=== PATIENT | male | born 1955 | race Hispanic/Latino ===

== ENCOUNTER → 2022-06-21 | Outpatient (CLI) | payer OTHER | END | disposition home or self-care (01) | LOC: WHH 10:49 | PROVIDERS: ATTEND Family Medicine | DX: L89.224 Pressure ulcer of left hip, stage 4 (principal); L89.210 Pressure ulcer of right hip, unstageable; L89.154 Pressure ulcer of sacral region, stage 4; G82.53 Quadriplegia, C5-C7 complete; M79.7 Fibromyalgia; E46 Unspecified protein-calorie malnutrition; Z68.23 Body mass index [BMI] 23.0-23.9, adult; Z87.891 Personal history of nicotine dependence | CPT/HCPCS: 87070 ×2; 87077 ×4; 87186 ×4; G0463; A6248 ==

== ENCOUNTER 2022-11-02 18:01 | Inpatient (IN) | payer OTHER ==
[~2022-11-02] VITALS: Ht 177.8 cm; Wt 64.4 kg
[2022-11-02] MEDS ORDERED: CEFEPIME HCL 2 GM VIAL IVP STA (18:07)
[2022-11-02] MEDS ORDERED: 0.9%NACL 1000ML 2,500 ML IV ONE (18:30)
[2022-11-02] MEDS ORDERED: VANCOMYCIN 1G VIAL IVPB ONE (18:30)
[2022-11-02 18:31] LABS: BASOPHILS % (AUTO) 0.2 % (0.0-5.0); EOSINOPHILS % (AUTO) 0.4 % (0.0-8.0); HEMATOCRIT 37.3 % (42-54); LYMPHOCYTES % (AUTO) 8.6 % (21.0-51.0); MEAN CORPUSCULAR HEMOGLOBIN 26.8 pg (27.0-33.0); MEAN CORPUSCULAR HGB CONC 32.7 g/dL (32.0-36.0); MEAN CORPUSCULAR VOLUME 81.8 fL (79-99); MONOCYTES % (AUTO) 9.2 % (3.0-13.0); NEUTROPHILS % (AUTO) 81.2 % (40.0-77.0); PLATELET COUNT (AUTO) 357 K/uL (130-400); RED BLOOD CELL COUNT(AUTO) 4.56 MIL/uL (4.50-6.20); RED CELL DISTRIBUTION WIDTH 15.7 % (11.0-15.5); WHITE BLOOD COUNT (AUTO) 16.2 K/uL (4.8-10.8)
[2022-11-02 18:32] LABS: APPEARANCE,URINE TURBID (CLEAR); BILIRUBIN,URINE NEGATIVE (NEGATIVE); COLOR,URINE ORANGE (YELLOW); GLUCOSE, URINE (UA) NEGATIVE (NEGATIVE); KETONES,URINE NEGATIVE (NEGATIVE); LEUKOCYTE ESTERASE ,URINE 500 Leu/uL (NEGATIVE); NITRATE,URINE NEGATIVE (NEGATIVE); OCCULT BLOOD,URINE LARGE (NEGATIVE); PH,URINE 7.5 (5.0-8.0); PROTEIN,URINE 100 mg/dL (NEGATIVE); UROBILINOGEN,URINE 0.2 mg/dL (0.2-1.0)
[2022-11-02 18:44] LABS: INR 1.02 (0.85-1.15); PROTHROMBIN TIME 11.1 SEC (9.6-11.6)
[2022-11-02 18:45] LABS: CREATININE 1.4 mg/dL (0.5-1.5); PARTIAL THROMBOPLASTIN TIME 31.6 SEC (26.3-35.5); POTASSIUM 4.7 mmol/L (3.5-5.1)
[2022-11-02 18:46] LABS: BACTERIA,URINE FEW /HPF (None Seen); RBC,URINE TNTC /HPF (0-1); TRANSITIONAL EPI CELLS,URINE FEW /HPF (None Seen); WBC,URINE TNTC /HPF (0-1)
[2022-11-02 18:54] LABS: ALBUMIN 3.3 g/dL (3.5-5.0); TOTAL PROTEIN, SERUM 7.5 g/dL (6.0-8.3)
[2022-11-02] MEDS ORDERED: VANCOMYCIN 1G/250ML KIT 250 ML IV ONE (19:18)
[2022-11-02] MEDS ORDERED: ACETAMINOPHEN 325 MG TAB PO PRN ×2 (19:30)
[2022-11-02] MEDS ORDERED: VANCOMYCIN PROTOCOL PER PHARMACY IV SCH (19:30)
[2022-11-02] MEDS ORDERED: ONDANSETRON 4MG INJ IV PRN (19:30)
[2022-11-02] MEDS ORDERED: NITROGLYCERIN 0.4 MG SL TAB SL PRN (19:30)
[2022-11-02] MEDS ORDERED: ASCO250T22 PO (21:09)
[2022-11-02] MEDS ORDERED: FINA5TAB41 PO (21:20)
[2022-11-02] MEDS ORDERED: KETO15CR2 TP (21:20)
[2022-11-02] MEDS ORDERED: FLUC100T12 PO (21:20)
[2022-11-02] MEDS ORDERED: CARB-305 OP (21:20)
[2022-11-02] MEDS ORDERED: CHOL-34 PO (21:20)
[2022-11-02] MEDS ORDERED: ZINC28.45 TP (21:20)
[2022-11-02] MEDS ORDERED: BISA10SU11 RC (21:20)
[2022-11-02] MEDS ORDERED: CAPS42.514 TP (21:20)
[2022-11-02] MEDS ORDERED: ZINC220T4 PO (21:20)
[2022-11-02] MEDS ORDERED: LACT10SO5 PO (21:20)
[2022-11-02] MEDS: VANCOMYCIN 1G/250ML KIT 250 ML IV SCH (21:30)
[2022-11-02] MEDS: 0.9%NACL 1000ML 1,000 ML IV SCH (21:31)
[2022-11-02] MEDS: FAMOTIDINE 20MG TAB PO SCH (21:31)
[2022-11-02] MEDS: HEPARIN 5,000 UNIT VIAL SQ SCH (21:31)
[2022-11-03 03:35] VITALS: BP 143/77
[2022-11-03] MEDS: 0.9%NACL 1000ML 1,000 ML IV SCH ×2 (04:52→15:16)
[2022-11-03 08:00] VITALS: BP 114/64
[2022-11-03 08:16] LABS: BASOPHILS % (AUTO) 0.3 % (0.0-5.0); EOSINOPHILS % (AUTO) 3.2 % (0.0-8.0); HEMATOCRIT 31.6 % (42-54); LYMPHOCYTES % (AUTO) 9.9 % (21.0-51.0); MEAN CORPUSCULAR HEMOGLOBIN 26.3 pg (27.0-33.0); MEAN CORPUSCULAR HGB CONC 31.6 g/dL (32.0-36.0); MEAN CORPUSCULAR VOLUME 83.2 fL (79-99); MONOCYTES % (AUTO) 8.1 % (3.0-13.0); NEUTROPHILS % (AUTO) 78.1 % (40.0-77.0); PLATELET COUNT (AUTO) 287 K/uL (130-400); RED CELL DISTRIBUTION WIDTH 15.3 % (11.0-15.5); WHITE BLOOD COUNT (AUTO) 11.1 K/uL (4.8-10.8)
[2022-11-03 08:30] LABS: ALBUMIN 2.5 g/dL (3.5-5.0); CREATININE 0.6 mg/dL (0.5-1.5); MAGNESIUM 2.4 mg/dL (1.80-2.40); POTASSIUM 3.4 mmol/L (3.5-5.1); TOTAL PROTEIN, SERUM 6.1 g/dL (6.0-8.3)
[2022-11-03] MEDS ORDERED: IBUPROFEN 600 MG TABLET PO PRN (08:30)
[2022-11-03] MEDS: HEPARIN 5,000 UNIT VIAL SQ SCH ×4 (09:00→19:56)
[2022-11-03] MEDS: FAMOTIDINE 20MG TAB PO SCH ×2 (09:00→19:51)
[2022-11-03 12:19] VITALS: BP 96/56
[2022-11-03 16:00] VITALS: BP 104/53
[2022-11-03] MEDS ORDERED: CEFEPIME HCL 2 GM VIAL IVP SCH (16:00)
[2022-11-03] MEDS ORDERED: HONEY 1 APPL/ML TUBE TP SCH (17:30)
[2022-11-03] MEDS ORDERED: BISACODYL 10 MG SUPP.RECT RC PRN (18:00)
[2022-11-03] MEDS ORDERED: CAPSAICIN CREAM 56.6GM TP PRN (18:00)
[2022-11-03] MEDS ORDERED: KETOROLAC 15MG/ML VIAL (15MG/ML) IV PRN (19:00)
[2022-11-03] MEDS: LACTULOSE 20 GM/30 ML UDCUP PO SCH (19:50)
[2022-11-03] MEDS: ARTIFICAL TEARS SOL 15 ML OP SCH (19:51)
[2022-11-03] MEDS: ZINC OXIDE OINT 30GM TUBE TP SCH (19:51)
[2022-11-03] MEDS: VANCOMYCIN 1G/250ML KIT 250 ML IV SCH (19:55)
[2022-11-03 20:00] VITALS: BP 96/77
[2022-11-04 04:00] VITALS: BP 116/84
[2022-11-04] MEDS ORDERED: **HM**(Zinc Sulfate (Zinc) 50 MG PO SCH (09:00)
[2022-11-04] MEDS ORDERED: LEVOFLOXACIN 500 MG TABLET PO SCH (09:00)
[2022-11-04] MEDS ORDERED: FLUCONAZOLE 100 MG TAB PO SCH (09:00)
[2022-11-04] MEDS ORDERED: ASCORBIC ACID 500 MG TAB PO SCH (09:00)
[2022-11-04] MEDS ORDERED: FINASTERIDE 5 MG TABLET PO SCH (09:00)
[2022-11-04] MEDS: FAMOTIDINE 20MG TAB PO SCH (11:21)
[2022-11-04] MEDS: ZINC OXIDE OINT 30GM TUBE TP SCH (11:22)
[2022-11-04] MEDS: HEPARIN 5,000 UNIT VIAL SQ SCH (11:24)
[2022-11-04] MEDS: LACTULOSE 20 GM/30 ML UDCUP PO SCH (11:25)
[2022-11-04] MEDS: ARTIFICAL TEARS SOL 15 ML OP SCH (11:44)
[2022-11-04 12:00] VITALS: BP 107/63
== END 2022-11-04 12:32 | DRG 698 ==
LOC: EDH 18:01 → EDHIP 19:20 → 4CH 11-03 03:26
PROVIDERS: ADMIT Hospitalist; ATTEND Hospitalist
DX: T83.518A Infection and inflammatory reaction due to other urinary catheter, initial encounter (principal); A41.9 Sepsis, unspecified organism; G82.50 Quadriplegia, unspecified; L89.154 Pressure ulcer of sacral region, stage 4; L89.224 Pressure ulcer of left hip, stage 4; R65.21 Severe sepsis with septic shock; N39.0 Urinary tract infection, site not specified; E87.1 Hypo-osmolality and hyponatremia; E44.0 Moderate protein-calorie malnutrition; Z68.1 Body mass index [BMI] 19.9 or less, adult; Z20.822 Contact with and (suspected) exposure to COVID-19; E78.5 Hyperlipidemia, unspecified; Y73.8 Miscellaneous gastroenterology and urology devices associated with adverse incidents, not elsewhere classified; Y84.6 Urinary catheterization as the cause of abnormal reaction of the patient, or of later complication, without mention of misadventure at the time of the procedure; D63.1 Anemia in chronic kidney disease; L89.219 Pressure ulcer of right hip, unspecified stage; N28.9 Disorder of kidney and ureter, unspecified; R54 Age-related physical debility; Z82.49 Family history of ischemic heart disease and other diseases of the circulatory system
CPT/HCPCS: 36415; 71045; 80053; 81001; 82550; 83605; 83735; 84484; 85025; 85610; 85730; 87040; 87077; 87088; 87186; 87635; 93005; 97039; G0378; J0692; J1644; J1885; J3370; J7030